=== PATIENT | male | born 1965 | race Caucasian/White ===

== ENCOUNTER → 2018-08-26 | Outpatient (CLI) | payer BC | END | disposition home or self-care (01) | LOC: RAD 12:46 | DX: R05 Cough (principal); R50.9 Fever, unspecified ==

== ENCOUNTER 2022-02-13 13:02 | Emergency (ER) | payer BC ==
[~2022-02-13] VITALS: Ht 182.8 cm; Wt 90.7 kg
[2022-02-13] MEDS ORDERED: CEPHALEXIN500 M1 PO (15:23)
== END 2022-02-13 15:39 | disposition home or self-care (01) ==
LOC: ED 13:02
DX: S51.811A Laceration without foreign body of right forearm, initial encounter (principal); W25.XXXA Contact with sharp glass, initial encounter; Y93.89 Activity, other specified; Y92.89 Other specified places as the place of occurrence of the external cause; Y99.8 Other external cause status